=== PATIENT | female | born 1975 | race American Indian/Alaskan Native ===

== ENCOUNTER 2016-12-21 08:12 | Emergency (ER) | payer MEDICAID ==
[2016-12-21 08:22] VITALS: BP 130/82
--- NOTE | 2016-12-21 10:55 | Emergency Department Report ---
ED Eye Problem HPI - General Chief complaint: Eye Problems Stated complaint: EYE PAIN Time Seen by Provider: 12/21/16 10:55 Source: patient Mode of arrival: Ambulatory Limitations: No Limitations - History of Present Illness Initial comments: Patient reports that her 1-year-old son poked her in her right eye last night. She says she is having pain and excessive tearing. She is also complaining the redness to her right eye. Pain is 8 out of 10 and sore. She does admit to feeling a foreign body sensation in her eye. Tetanus shot is up-to-date she got in 2012. She reports that she has sensitivity to light but no decrease in vision. No [id number] pain medication taken. Patient is a history of asthma. Pain to the right eye is worse with moving her eyes and when exposed to light. Better with her eyes closed. chief complaint: eye pain, eye redness, eye injury -: Last night Onset Description: sudden Location: right eye Place: home If Injury: direct trauma Eye Symptoms: burning, redness, pain, foreign body sensation, photophobia Severity: severe Severity scale (0 -10): 8 If Pain, Quality: burning Consistency: constant Context: injury Associated Symptoms: none. denies: headache, neck pain, nausea/vomiting, cough , rhinorrhea, fever, shortness of breath Treatments Prior to Arrival: none - Related Data Patient Tetanus UTD: Yes Previous Rx's Medication Instructions Recorded Last Taken Type Docusate Sodium [Colace] 100 mg PO BID PRN #60 capsule 03/28/15 Unknown Rx Ferrous Sulfate [Feosol 325 MG tab] 325 mg PO BID #60 tablet 03/28/15 Unknown Rx Oxycodone HCl/Acetaminophen 1 each PO Q6HR PRN #45 tablet 03/28/15 Unknown Rx [Percocet 10/325 mg] Acetaminophen/Codeine [Tylenol 1 tab PO Q8H PRN #12 tab 12/21/16 Unknown Rx /Codeine # 3 tab] Gentamicin 0.3% Ophth Soln 2 drops OP Q4H #1 bottle 12/21/16 Unknown Rx Ibuprofen [Motrin 800 MG tab] 800 mg PO Q8HR PRN #15 tablet 12/21/16 Unknown Rx Allergies Allergy/AdvReac Type Severity Reaction Status Date / Time No Known Allergies Allergy Unverified 03/27/15 14:49 ED Review of Systems ROS: Stated complaint: EYE PAIN Other details as noted in HPI Comment: All other systems reviewed and negative Constitutional: no symptoms reported Eyes: eye pain. denies: eye discharge, vision change ENT: denies: ear pain, throat pain, dental pain, hearing loss, epistaxis, congestion Respiratory: no symptoms reported Cardiovascular: denies: chest pain, palpitations, dyspnea on exertion, edema, syncope Musculoskeletal: denies: back pain, joint swelling, arthralgia, myalgia Skin: denies: rash Neurological: denies: headache, weakness ED Past Medical Hx - Past Medical History Previous Medical History?: Yes Hx Hypertension: No Hx Congestive Heart Failure: No Hx Diabetes: No Hx Deep Vein Thrombosis: No Hx Renal Disease: No Hx Sickle Cell Disease: No Hx Seizures: No Hx Asthma: Yes Hx COPD: No Hx HIV: No - Surgical History Past Surgical History?: Yes Additional Surgical History: C section - Family History Family history: hypertension - Social History Smoking Status: Current Every Day Smoker Substance Use Type: None - Medications Home Medications: Home Medications Medication Instructions Recorded Confirmed Last Taken Type Docusate Sodium [Colace] 100 mg PO BID PRN #60 capsule 03/28/15 Unknown Rx Ferrous Sulfate [Feosol 325 MG tab] 325 mg PO BID #60 tablet 03/28/15 Unknown Rx Oxycodone HCl/Acetaminophen 1 each PO Q6HR PRN #45 tablet 03/28/15 Unknown Rx [Percocet 10/325 mg] Acetaminophen/Codeine [Tylenol 1 tab PO Q8H PRN #12 tab 12/21/16 Unknown Rx /Codeine # 3 tab] Gentamicin 0.3% Ophth Soln 2 drops OP Q4H #1 bottle 12/21/16 Unknown Rx Ibuprofen [Motrin 800 MG tab] 800 mg PO Q8HR PRN #15 tablet 12/21/16 Unknown Rx ED Physical Exam - General Limitations: No Limitations General appearance: alert, in no apparent distress - Head Head exam: Present: atraumatic, normocephalic, normal inspection - Eye Eye exam: Present: PERRL, EOMI, conjunctival injection (right). Absent: scleral icterus, nystagmus, periorbital swelling, periorbital tenderness Pupils: Present: normal accommodation, other (no restriction and eye movement. She does say it's more painful when she moves her right eye.) - Expanded Eye Exam Expanded Eyelids: Normal Inspection: Right (bilateral) Pupils: Regular, Round: Bilateral, Reactive: Bilateral Sclera/Conjunctival: Normal Inspection: Left, Injection: Right Anterior chamber: Normal Inspection: Bilateral Posterior chamber: Normal Inspection: Bilateral Visual acuity (R) = 20/: 70 Visual acuity (L) = 20/: 50 (20/ 50 both eyes) With correction: No - ENT ENT exam: Present: normal exam, normal orophraynx, mucous membranes moist, TM's normal bilaterally, normal external ear exam - Neck Neck exam: Present: normal inspection, full ROM. Absent: tenderness, meningismus, lymphadenopathy - Respiratory Respiratory exam: Present: normal lung sounds bilaterally. Absent: respiratory distress, chest wall tenderness - Cardiovascular Cardiovascular Exam: Present: regular rate, normal rhythm, normal heart sounds. Absent: systolic murmur, diastolic murmur - Extremities Exam Extremities exam: Present: normal inspection, full ROM, normal capillary refill , other (no clubbing cyanosis or edema. +2 pulses in all extremities. No neurovascular compromise.). Absent: tenderness, pedal edema, joint swelling, calf tenderness - Neurological Exam Neurological exam: Present: alert, oriented X3, normal gait, reflexes normal. Absent: motor sensory deficit - Psychiatric Psychiatric exam: Present: normal affect, normal mood - Skin Skin exam: Present: warm, dry, intact, normal color. Absent: rash ED Course Vital Signs 12/21/16 08:18 Temperature 98.7 F Pulse Rate 73 Respiratory 16 Rate Blood Pressure 130/82 O2 Sat by Pulse 99 Oximetry - Reevaluation(s) Reevaluation #1: 12/21/16 12:48 Patient given Motrin 800 mg emergency room for right eye pain. See procedure note for details on Wood lamp specimen. - Procedure Description Procedures done: Right eye procedure: Right eye examined under Lira lamp. Prior to examination 2 drops of tetracaine instilled and right eye followed by fluorescein stain with positive uptake. Right eye with small corneal abrasion. Right eye flushed with sterile water. Patient had tetanus vaccine in 2012. She tolerated procedure well. ED Medical Decision Making - Medical Decision Making ED course: Patient seen here status post right eye injury with complaints of pain and foreign body sensation. I examined under Lira lamp and patient found to have corneal abrasion. See procedure mode for details on right eye examination under Wood's lamp. Patient with diagnosis of right eye pain, right eye injury and corneal abrasion to right eye. Her tetanus vaccine is up-to- date. Patient was given Motrin 800 mg in the emergency room which decreased her eye pain and after instillation of tetracaine she experienced brief burning to her right eyebrow itself and she said she has complete relief of pain. Patient discharged home with prescription for gentamicin ophthalmic drops and to follow up with haircutter in 2-3 days and or to return to the emergency room if symptoms worsens. Patient had visual acuity daily test in emergency room and her vision is slightly decreased to her right eye when comparing to her left and both eyes. She says she wears glasses. I advised her not to wear contact while her eye is healing. Critical care attestation.: If time is entered above; I have spent that time in minutes in the direct care of this critically ill patient, excluding procedure time. ED Disposition Clinical Impression: Acute right eye pain Right corneal abrasion Qualifiers: Encounter type: initial encounter Qualified Code(s): S05.01XA - Injury of conjunctiva and corneal abrasion without foreign body, right eye, initial encounter Right eye injury Qualifiers: Encounter type: initial encounter Qualified Code(s): S05.91XA - Unspecified injury of right eye and orbit, initial encounter Disposition: TO HOME OR SELFCARE Is pt being admited?: No Does the pt Need Aspirin: No Condition: Stable Instructions: Corneal Abrasion (ED), Eye Pain (ED) Additional Instructions: Please do not take Tylenol [address] you [address] or operating heavy machinery as this medication causes drowsiness Follow up with haircutter in 2-3 days or return to the emergency room if his symptoms worsens Use antibiotic eyedrops as instructed Can wear sunglasses to prevent sensitivity to light. Take Motrin as prescribed if you're going to be driving. He is avoid wearing contacts until your corneal abrasion healed. Prescriptions: Acetaminophen/Codeine [Tylenol /Codeine # 3 tab] 1 tab PO Q8H PRN #12 tab PRN Reason: Pain, Moderate (4-6) Gentamicin 0.3% Ophth Soln 2 drops OP Q4H #1 bottle Ibuprofen [Motrin 800 MG tab] 800 mg PO Q8HR PRN #15 tablet PRN Reason: Pain Referrals: AKOSUA WEAVER MD [Staff Physician] - 2-3 Days Forms: Work/School Release Form(ED)
[2016-12-21] MEDS ORDERED: MOTRIN ONE (11:11)
[2016-12-21] MEDS ORDERED: MOTRIN PO ONE (11:20)
[2016-12-21] MEDS ORDERED: TETRACAINE 0.5% OD ONE (11:29)
[2016-12-21] MEDS ORDERED: FUL-GLO OP ONE (11:29)
== END 2016-12-21 13:21 | disposition home or self-care (01) ==
LOC: ED 08:12
DX: S05.01XA Injury of conjunctiva and corneal abrasion without foreign body, right eye, initial encounter (principal); S05.91XA Unspecified injury of right eye and orbit, initial encounter; J45.909 Unspecified asthma, uncomplicated; F17.200 Nicotine dependence, unspecified, uncomplicated; X58.XXXA Exposure to other specified factors, initial encounter; Y93.89 Activity, other specified; Y92.89 Other specified places as the place of occurrence of the external cause; Y99.8 Other external cause status
CPT/HCPCS: 99283

== ENCOUNTER 2017-03-12 15:26 | Outpatient (CLI) | payer MEDICAID ==
--- NOTE | 2017-03-13 09:26 | Magnetic Resonance Report ---
MRI BRAIN WITHOUT AND WITH CONTRAST: 03/12/17 16:00:00 CLINICAL: Hemangioma. COMPARISON: MRI brain without contrast 05/07/16 TECHNIQUE: Axial diffusion, T1, FLAIR, gradient echo T2*, and coronal and axial T2 and sagittal T1 plus coronal and axial postcontrast T1 sequences on a 1.5 Jeni magnet. 12.0 cc of Multihance was injected intravenously for the contrast portion of the exam. Consent was obtained prior to the administration of contrast. FINDINGS: Normal ventricles and sulci. No abnormal signal and no restricted diffusion. No mass or enhancing lesion. No hemorrhage, edema or extra-axial collection. Normal pituitary and optic chiasm. The brainstem and cerebellum are normal. Intact vascular flow voids. The orbits, sinuses and soft tissues are normal. Imaged portions of the face and neck are normal. Normal calvarium and skull base. IMPRESSION: Normal study. No hemangioma or mass identified. No acute change.
== END 2017-03-12 15:27 | disposition home or self-care (01) ==
LOC: MRI 15:26
PROVIDERS: ATTEND Psychiatry & Neurology Neurology
DX: D18.00 Hemangioma unspecified site (principal); R42 Dizziness and giddiness; R51 Headache; J45.909 Unspecified asthma, uncomplicated; F17.200 Nicotine dependence, unspecified, uncomplicated
CPT/HCPCS: 70553; A9577